=== PATIENT | male | born 1950 | race Caucasian/White ===

== ENCOUNTER → 2018-10-25 08:12 | Outpatient (CLI) | payer MEDICARE, OTHER, SELFPAY ==
[2018-10-25 09:39] LABS: Alanine Aminotransferase 34 IU/L (21-72); Albumin Globulin Ratio 1.7 (1.0-2.8); Alkaline Phosphatase 75 U/L (38-126); Aspartate Aminotransferase 30 IU/L (17-59); Blood Urea Nitrogen 20 mg/dL (9-20); Calcium 8.9 mg/dL (8.4-10.2); Carbon Dioxide 30 mmol/L (22-32); Chloride 103 mmol/L (98-107); Cholesterol 192 mg/dL (140-199); Estimated Glomerular Filt Rate > 60.0 mL/min (>60); Globulin 2.3 g/dL (1.7-4.1); Glucose 102 mg/dL (80-110); HDL Cholesterol 37 mg/dL (40-60); LDL Cholesterol Calculated 120 mg/dL (<100); Potassium 4.1 mmol/L (3.4-5.1); Sodium 140 mmol/L (137-145); Total Protein 6.3 g/dL (6.3-8.2); Triglycerides 173 mg/dL (35-150)
[2018-10-25 10:05] LABS: Thyroid Stimulating Hormone 1.88 uIU/mL (0.47-4.68)
[2018-10-25 10:11] LABS: HEMOLYSIS < 15 (0-50); Prostate Specific Antigen Scrn 2.42 ng/mL (0.1-4.0)
== END ==
PROVIDERS: PCP Internal Medicine; Visit Provider Internal Medicine
DX: E78.5 Hyperlipidemia, unspecified (principal); E04.9 Nontoxic goiter, unspecified; Z12.5 Encounter for screening for malignant neoplasm of prostate; Z13.1 Encounter for screening for diabetes mellitus; Z13.6 Encounter for screening for cardiovascular disorders
CPT/HCPCS: 36415; 80053; 80061; 84439; 84443; G0103

== ENCOUNTER → 2020-06-06 08:01 | Outpatient (CLI) | payer MEDICARE, OTHER, SELFPAY ==
[2020-06-06 09:33] LABS: Prostate Specific Antigen 3.03 ng/mL (0.10-4.00)
== END ==
PROVIDERS: PCP Internal Medicine; Referring Provider Specialist; Visit Provider Specialist
DX: N13.8 Other obstructive and reflux uropathy (principal); N40.1 Benign prostatic hyperplasia with lower urinary tract symptoms
CPT/HCPCS: 36415; 84153

== ENCOUNTER → 2021-03-05 08:03 | Outpatient (CLI) | payer MEDICARE, OTHER, SELFPAY ==
[2021-03-05 10:05] LABS: Alanine Aminotransferase 37 IU/L (<50); Albumin 4.1 g/dL (3.5-5.0); Albumin Globulin Ratio 1.5 (1.0-2.8); Alkaline Phosphatase 83 U/L (38-126); Aspartate Aminotransferase 37 IU/L (17-59); BUN Creatinine Ratio 19.5 (6-22); Blood Urea Nitrogen 22 mg/dL (9-20); Calcium 9.3 mg/dL (8.4-10.2); Carbon Dioxide 29 mmol/L (22-32); Chloride 106 mmol/L (98-107); Cholesterol 237 mg/dL (140-199); Estimated Glomerular Filt Rate > 60.0 mL/min (>60); Globulin 2.7 g/dL (1.7-4.1); Glucose 107 mg/dL (80-110); HDL Cholesterol 42 mg/dL (40-60); HEMOLYSIS < 15 (0-50); LDL Cholesterol Calculated 149 mg/dL (<100); Potassium 4.1 mmol/L (3.4-5.1); Sodium 141 mmol/L (137-145); Total Protein 6.8 g/dL (6.3-8.2); Triglycerides 231 mg/dL (35-150)
== END ==
PROVIDERS: PCP Internal Medicine; Referring Provider Internal Medicine; Visit Provider Internal Medicine
DX: E78.5 Hyperlipidemia, unspecified (principal); N40.1 Benign prostatic hyperplasia with lower urinary tract symptoms
CPT/HCPCS: 36415; 80053; 80061

== ENCOUNTER → 2022-10-23 08:33 | Outpatient (CLI) | payer MEDICARE, SELFPAY ==
[2022-10-23 10:57] LABS: Prostate Specific Antigen 4.04 ng/mL (0.10-4.00)
== END ==
PROVIDERS: PCP Internal Medicine; Referring Provider Specialist; Visit Provider Specialist
DX: N40.1 Benign prostatic hyperplasia with lower urinary tract symptoms (principal)
CPT/HCPCS: 36415; 84153

== ENCOUNTER → 2022-11-04 10:11 | Outpatient (CLI) | payer MEDICARE, OTHER, SELFPAY ==
[2022-11-06 09:05] LABS: PSA Free % 8.6 % (.); PSA, Total 2.9 ng/mL (0.0-4.0)
== END ==
PROVIDERS: PCP Internal Medicine; Referring Provider Specialist; Visit Provider Specialist
DX: R97.20 Elevated prostate specific antigen [PSA] (principal)
CPT/HCPCS: 36415; 84153; 84154

== ENCOUNTER → 2023-03-27 14:46 | Outpatient (CLI) | payer MEDICARE, OTHER, SELFPAY ==
[2023-03-29 09:06] LABS: PSA Free % 7.4 % (.); PSA, Total 3.9 ng/mL (0.0-4.0)
== END ==
PROVIDERS: PCP Internal Medicine; Referring Provider Specialist; Visit Provider Specialist
DX: R97.20 Elevated prostate specific antigen [PSA] (principal)
CPT/HCPCS: 36415; 84153; 84154

== ENCOUNTER → 2023-04-27 11:02 | Outpatient (CLI) | payer MEDICARE, OTHER, SELFPAY ==
--- NOTE | 2023-04-27 11:05 | DI.MRI.S_ITS ---
PROCEDURE: MR PELVIC PROSTATE PROTOCOL INDICATIONS: elevated PSA level TECHNIQUE: Coronal HASTE, axial T1 FSE with fat saturation, 3-plane nonbreath-hold T2 FSE. After the administration of contrast, dynamic axial, delayed axial and coronal VIBE or 2-D FLASH with fat saturation through the pelvis. Optional diffusion weighted imaging and ADC may be performed. COMPARISON: None. FINDINGS: Image quality: Diffusion weighted and dynamic contrast enhanced images are diagnostic. Prostate: Gland size is 4.1 x 2.9 x 4.2 cm; ellipsoid gland volume is 26 mL. Mild linear and wedge-shaped ADC hypointensities present within the prostate peripheral zone with indistinct T2 correlates (PI-RADS 2 findings). In the transition zone, no large lesion strongly stands out against background parenchymal changes of BPH on T2 weighted images (PI-RADS 2 findings). Genitourinary system: Bladder wall thickness is normal. Distal ureters are non distended. Bowel and peritoneum: No pathologic free pelvic fluid. Inferior colon and small bowel loops are normal in caliber. Nodes and vessels: No pelvic or inguinal adenopathy by size criteria. Iliac vessels are normal in caliber. Bones: No definite lesions to suggest metastases. IMPRESSION: 1. No large or highly suspicious focal prostate lesion to direct biopsy. Prostate volume estimated at 26 cc. 2. No suspicious lymph nodes identified in the imaged pelvis. Dictated by: Renato Dee M.D. on 04/27/2023 at 16:20 Approved by: Renato Dee M.D. on 04/27/2023 at 16:41
== END ==
PROVIDERS: PCP Internal Medicine; Referring Provider Specialist; Visit Provider Specialist
DX: N40.1 Benign prostatic hyperplasia with lower urinary tract symptoms (principal); R97.20 Elevated prostate specific antigen [PSA]; Z87.898 Personal history of other specified conditions
CPT/HCPCS: 72197; A9579

== ENCOUNTER 2023-06-15 07:52 | Day surgery (SDC) | payer MEDICARE, OTHER, SELFPAY ==
[2023-06-11 07:36] VITALS: BMI 25.0
[2023-06-15] VITALS (15 sets, daily range): BP systolic 125–156; BP diastolic 61–80; PULSE 59–79; RESP 10–18; TEMP 35.9–36.7; O2SAT 95–99; BMI 25.0
--- NOTE | 2023-06-15 | PATH_ITS ---
[facility] Accession Number: [id number] No. of containers..01 Tissue . 01 Material submitted: . prostate - PROSTATE CHIPS . 01 Diagnosis: Prostate Chips: Benign prostatic tissue with glandular and stromal hyperplasia; negative for malignancy. MRV 06/24/2023 1518 Local . 01 Electronically signed: . Angeline Soto MD, Pathologist NPI- [id number] . 01 Gross description: . PROSTATE CHIPS: Received in formalin is multiple fragment(s) of rodas, soft tissue measuring 9.0 x 6.0 x 0.5 cm in aggregate submitted entirely in 7 cassette(s) /AAY 06/16/2023 0600 Local . 01 Pathologist provided ICD-10: N32.0 . 01 CPT . 208468 Specimen Comment: A courtesy copy of this report has been sent to [phone] Performed at: 01 [facility] [address] [place] [address], [place], [place] [id number] MD Dusty Ya MD Phone: [phone]
[2023-06-15] MEDS: LACTATED RINGERS 1,000 ML 21 ML IV (08:10)
[2023-06-15] MEDS: ACETAMINOPHEN IV 1,000 MG/100 ML VIAL 400 MG IV (08:10)
--- NOTE | 2023-06-15 08:30 | PM.PREOP ---
Pre-operative Note Interval Note History & Physical reviewed/Exam performed by Physician: Yes Changes to H&P: No
[2023-06-15] MEDS: CEFAZOLIN 2 GM/100 ML PREMIX 100 ML IV (09:15)
[2023-06-15] MEDS: TRANEXAMIC ACID 1,000 MG in SODIUM CHLORIDE 0.9% 100 ML 200 MG IV (09:16)
--- NOTE | 2023-06-15 09:34 | SUR.OPER ---
Lithotomy on padded OR bed, head on pillow, arms secured on padded arm boards at <90 degrees abduction. Legs secured in padded yellow fins stirrups.
--- NOTE | 2023-06-15 10:18 | P.OP_ITS ---
Operative Date/Time/Diagnoses Date of procedure: 06/15/23 Time of procedure: 10:18 Pre-op diagnosis: 1. Bladder outlet obstruction. 2. Failure medical therapy. Post-op diagnosis: same Procedure & Clinicians Procedure: 1. Cystoscopy/Transurethral resection of prostate. Same procedure as scheduled: Yes Indications: 1. Bladder outlet obstruction. 2. Failure medical therapy. Surgeon: Maxi Ge Click Yes if Unassisted: Yes Anesthesia Type: General Operative Notes Findings: 1. Urethra-normal caliber without annular stricture or lesion. 2. External sphincter-coapted with normal overlying urothelium and vascularity. 3. Prostate-4 cm length with very high median bar and globus intravesical median lobe. Moderate lateral lobe hyperplasia. 4. Bladder-1 to 2+ trabeculation. Normal ureteral orifices bilaterally with clear efflux. No stone, tumor, or diverticulum seen. Closure Type: not applicable Specimen(s): other (Prostate chips) Applied: catheter ([address] hematuria catheter) Estimated Blood Loss (mL): 5 Blood products transfused: none Procedure in detail: The patient was positioned supine and was administered general anesthesia. He was then repositioned in semi-lithotomy and the lower abdomen, genitalia, and groin were then prepped and draped in the sterile fashion. The meatus and some navicularis required gentle dilation with the Winsome sound in order to insinuate the resectoscope. Resectoscope was then advanced proximally under direct visualization with the findings as described above. The working element was then fitted with the TUR loop. Incisions were made at the 1 and 11 p ositions from the bladder neck to the level of the verumontanum down near the capsule. The intervening anterior tissue was then resected from bladder neck to level of verumontanum in the same manner. Next the left, followed by the right lateral lobe tissue was resected anteriorly toward posterior. Now the globus median lobe and elevated median bar were resected and general contour from the bladder neck to just proximal of the verumontanum. Bilateral apical tissue was intentionally left adjacent to the verumontanum. All bleeding was carefully cauterized for hemostasis. Next, the [employer] evacuator was utilized together all tissue chips. The TUR chips were then submitted to pathology for routine gross and microscopic examination. The bladder was then left partially filled and the resectoscope was removed. A [address] hematuria catheter was then passed into the bladder with the assistance of a catheter guide. The balloon was then inflated to 30 cc and gently snugged to the level of the bladder neck. The catheter was then irrigated with a catheter tip syringe to assure patency and hemostasis. A three-way catheter was then attached to normal saline inflow and gravity outflow. The catheter arrangement was secured to the inner thigh using a StatLock without traction. The patient was then repositioned in supine, was awakened, transferred to [facility], and then transferred to recovery in stable condition. Complications: none Post-operative Condition: stable Disposition: PACU Plan for aftercare: Admit outpatient with the bed.
[2023-06-15] MEDS: OXYCODONE IR 5 MG TABLET PO ×3 (10:44→21:42)
[2023-06-15] MEDS: ONDANSETRON 4 MG/2 ML INJ IV (11:00)
[2023-06-15] MEDS: HYDROMORPHONE 0.5 MG INJ IV ×2 (11:27→12:43)
[2023-06-15] MEDS: LACTATED RINGERS 1,000 ML 125 ML IV ×2 (11:30→21:30)
[2023-06-15] MEDS: ACETAMINOPHEN 325 MG TABLET 650 MG PO (16:59)
[2023-06-16] MEDS: HYDROMORPHONE 0.5 MG INJ IV (01:23)
[2023-06-16 03:54] VITALS: BP 136/74; PULSE 73; RESP 16; TEMP 35.8; O2SAT 100
[2023-06-16] MEDS: OXYCODONE IR 5 MG TABLET PO ×2 (05:22→14:04)
[2023-06-16] MEDS: TAMSULOSIN 0.4 MG CAPSULE PO (08:12)
[2023-06-16 09:00] VITALS: BP 137/69; PULSE 63; RESP 16; TEMP 36.5; O2SAT 98
--- NOTE | 2023-06-16 12:23 | CM.DANOTE ---
Brief DCP Assessment Note Patient is a 72[address] Ge following a Cystoscopy/Transurethral resection of prostate on 06/[address] 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 No H&P available. only available report at time is operative note. From RN, pt lives with in [place]. Indep at baseline. No CM needs likely. From RN, voided and Joo plans to return around 12pm to likely dc patient home. 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 Per chart review/RN input, likely no CM needs. Plan: home with spouse support when medically stable. Likely today. CM team will continue to follow as needed. WENDY Chambers Discharge Planning/Care Management CM Discharge Assessment Start: 06/16/23 12:21 Freq: Status: Active Protocol: Document 06/16/23 12:21 (Rec: 06/16/23 12:23 [id number]) Discharge Planning Assessment Assigned Nursing Unit Clerk WENDY Rey DPOA/Assigned Designee Name Kathrin Rodriguez (spouse) Contact Information [phone] Advance Directives? No History Provided By Medical Record Prior Living Arrangements House Household Members spouse Independent with ADL's Yes Is patient alert and oriented? Yes Barriers to Discharge No Discharge Plan Home Transportation Arrangement likely family in [place] Referrals Initiated None needed Whiteboard Updated in Patient Room with No name and ext. # of Nursing Unit Clerk Review Status In Process Next Review Type Continued Stay Review Pre-Anesthesia Assessment Start: 06/11/23 07:36 Freq: Status: Active Protocol: Document 06/11/23 07:36 CAB (Rec: 06/11/23 07:40 CAB [id number]) Pre-Anesthesia Assessment Patient Information Reviewed Via Chart Review Primary Care Provider Orville Almazan Seen Specialist in Last 12 Months Yes Specialist Seen Urologist Primary Language [employer] Operations Manager Required No Height 182.88 cm Weight 83.915 kg Body Mass Index (BMI) 25.0 Barriers to Learning None Anesthesia Review Requested No Marketing Professor No alcohol intake current alcohol intake frequency a few times a week Smoking Status Former smoker History of Falling (Recent or History of No ) Patient is completely paralyzed or No completely immobile Mental Status Oriented to own ability Is patient on oxygen? No Hx Sleep Apnea No Currently Taking a Beta Albert No Anti-Coagulant Therapy No Cardiac Testing No Hx Pacemaker/ICD No Pacemaker Rep Required? No Cardiac Clearance Received Not Applicable Gastrointestinal Symptoms Reflux Urinary Catheter Present No Hx Urinary Self Catheterization No Diabetes No Marital Status Lives With spouse Patient Discharge Plan Description Return Home
[2023-06-16 12:51] VITALS: BP 130/60; PULSE 77; RESP 17; TEMP 36.5; O2SAT 99
--- NOTE | 2023-06-16 13:16 | P.DS_ITS ---
History of Present Illness History of Present Illness Date Patient Seen: 06/16/23 Time Patient Seen: 12:30 Chief complaint: OPB Narrative: Patient is a 72-year-old male admitted 06/15/2023 for schedule Transurethral resection of the prostate. He carefully evaluated other forms of intervention for symptomatic bladder outlet obstruction and dissatisfaction/failure of medical therapy. After careful consideration he elected to proceed with Transurethral resection of prostate. Discharge Providers Provider Date of admission: 06/15/2023. Discharge Date: 06/16/23 Primary care physician: Orville Almazan MD Discharge provider: Maxi Ge MD Summary Hospital Course Discharge Diagnosis: 1. Bladder outlet obstruction. 2. Failure medical therapy. Hospital Course: The patient was admitted on 06/15/2023 and underwent uncomplicated Transurethral resection of the prostate under general anesthetic. His postop course was largely unremarkable other than noted penile glans pain in the immediate postoperative. Limited narcotic analgesic and ice pack brought prompt remedy of his immediate postoperative complaints. Otherwise, he tolerated general diet, was able to transfer independently, and able to ambulate without assistance by the 1st postoperative morning. In the later morning of 06/16/2023, the patient was stable for discharge. Routine post TURP activity and driving restriction, and catheter care and use instructions were provided. Exam Vital Signs (past 8 hours): - 06/16/23 09:00 06/16/23 12:51 Temperature 97.7 F 97.7 F Pulse Rate 63 77 Respiratory Rate 16 17 Blood Pressure 137/69 130/60 Pulse Oximetry 98 99 Oxygen Flow Rate 0 0 Oxygen Delivery Method Room Air Oxygen Flow Rate 0 Narrative Exam Narrative: Resting comfortably in bed upright and eating lunch in no distress. Abdomen is soft scaphoid flat. Shultz catheter indwelling with very light sarita outflow in no clots. [facility] Medical History History of elevated PSA Family history of prostate cancer Elevated PSA Erectile dysfunction Family history of prostate cancer BPH loc w urin obs/LUTS (05/04/12) GERD without esophagitis (05/04/12) Hyperlipidemia, unspecified (05/04/12) Surgical History History of ankle surgery History of surgery on arm S/P tonsillectomy and adenoidectomy Social History household members: spouse Smoking Status: Former smoker alcohol intake: current Discharge Assessment & Plan Assessment and Plan Assessment: 1. Stable postop day 1 status post Transurethral resection of prostate. 2. Pathology pending. 3. Indwelling Shultz. Plan of Treatment: 1. Discharge home today. 2. Follow-up with patient and discuss surgical pathology when final. 3. Schedule outpatient follow-up in Urology Clinic 06/17/2023 for supervised voiding trial. Discharge Plan Discharge Plan Patient Disposition: Home Provider Discharge Comment: Contact Urology Clinic today to schedule supervise voiding trial for Thursday06/17/2023. Discharge orders & Medications Discharge Orders: Discharge (Order); Ordered 06/16/23 Ordered By: Maxi Ge Prescriptions: New oxycodone 5 mg Tablet 5 mg PO Q4H PRN (Reason: Pain, Moderate (4-6)) Qty: 6 0RF alprazolam 0.5 mg tablet 0.5 mg PO DAILY Qty: 1 0RF Rx Instructions: Take tablet proximally 1 hour before scheduled procedure as directed. cephalexin 250 mg capsule 250 mg PO TID Qty: 10 0RF Continued tamsulosin 0.4 mg capsule 0.4 mg PO DAILY Qty: 90 3RF Follow up/Referrals: Maxi Ge MD [Physician] - 06/17/23 (Dr eG's office will call you with appointment time for 06/17 for supervised voiding trial ) Orville Almazan MD [Primary Care Provider] - Diet/Activity/Treatments Diet: Diet as Tolerated Activity: Refrain from lifting objects greater than 15 lb x 4 weeks. Catheter: 2-way Shultz Skin/Wound/Dressing Care Report to your healthcare provider any signs of infection, such as:: chills, fever, night sweats, increased pain and unusual drainage Visit Report/Discharge Packet Instructions: How to Care for Your Shultz Catheter -- Male, DI for Transurethral Resection of the Prostate, DI for Prescription Opioid Use, Oxycodone, Cephalexin, Alprazolam (By mouth) Stand Alone Forms: Patient Portal/API, Stroke Signs & Symptoms, Surgery Discharge Discharge Data Primary Care Provider: Orville Almazan Attending Provider: Maxi Ge
--- NOTE | 2023-06-16 14:17 | PC.NURSE ---
discharg note: patient teaching done with patient and at bedside. Bother parties state understanding about cath care, cleaning, S\S of infection and\or cath clotting. Advised patient to document amount emptied and time. Patient declined to use a leg bag and wanted to d/c with large back. Patient states he has a f/u with provider on 06/17 for removal. Patients urine has hematuria but not abn. for surg. that was had or what was present during hosp. stay. Patient is leaving with belongings in hand, in stable condition, VSS, escorted down to private vehicle via .
[2023-06-26 06:35] LABS: Appearance Urine UA SL CLOUDY; Bilirubin Urine UA NEGATIVE (NEGATIVE); Color Urine UA YELLOW; Glucose Urine UA NEGATIVE (Negative); Ketones Urine UA NEGATIVE (NEGATIVE); Leukocyte Esterase Urine UA 1+ (NEGATIVE); Nitrite Urine UA NEGATIVE (Negative); Occult Blood Urine UA 3+ (Negative); Protein Urine UA TRACE (Negative); Specific Gravity Urine UA <=1.005 (1.000-1.035); Urobilinogen Urine UA 0.2 E.U./dL (0.2)
[2023-06-26 06:46] LABS: Bacteria Urine None Seen; Culture Indicated Urine Specimen Cultured; RBC Urine 10-30/HPF (0-5/HPF); Squamous Epithelial Cell Urine 1-5 /HPF (0-5/HPF); WBC Urine 5-10/HPF (0-5/HPF)
== END 2023-06-16 14:39 | disposition home or self-care (01) ==
LOC: OR 07:54 → AC 07:55
PROVIDERS: PCP Internal Medicine; Referring Provider Specialist; Visit Provider Specialist
PROC: 0VT08ZZ Resection of Prostate, Via Natural or Artificial Opening Endoscopic (ICD-10-PCS; CPT 52601; principal; 2023-06-15 09:15)
DX: N32.0 Bladder-neck obstruction (principal); N40.0 Benign prostatic hyperplasia without lower urinary tract symptoms; Z80.42 Family history of malignant neoplasm of prostate
CPT/HCPCS: 52601; 81001; 87086; J0131; J0690; J1100; J1170; J2250; J2405; J2704; J3010

== ENCOUNTER → 2023-07-22 12:15 | Outpatient (CLI) | payer MEDICARE, OTHER, SELFPAY ==
[2023-06-16 16:50] VITALS: BMI 25.0
== END ==
PROVIDERS: PCP Internal Medicine; Visit Provider Specialist
DX: T83.511A Infection and inflammatory reaction due to indwelling urethral catheter, initial encounter (principal); R31.0 Gross hematuria; N39.0 Urinary tract infection, site not specified; N40.1 Benign prostatic hyperplasia with lower urinary tract symptoms; Z80.42 Family history of malignant neoplasm of prostate
CPT/HCPCS: 51798; 81002; 87077; 87086; 87186; 99213

== ENCOUNTER → 2023-08-05 13:56 | Outpatient (CLI) | payer MEDICARE, OTHER, SELFPAY ==
[2023-06-16 16:50] VITALS: BMI 25.0
== END ==
PROVIDERS: PCP Internal Medicine; Visit Provider Specialist
DX: N39.0 Urinary tract infection, site not specified (principal); R39.9 Unspecified symptoms and signs involving the genitourinary system; Z80.42 Family history of malignant neoplasm of prostate
CPT/HCPCS: 51798; 81002; 87086; 99214

== ENCOUNTER → 2023-08-12 13:50 | Outpatient (CLI) | payer MEDICARE, OTHER, SELFPAY ==
[2023-06-16 16:50] VITALS: BMI 25.0
== END ==
PROVIDERS: PCP Internal Medicine; Visit Provider Specialist
DX: R39.9 Unspecified symptoms and signs involving the genitourinary system (principal); Z80.42 Family history of malignant neoplasm of prostate
CPT/HCPCS: 51798; 81002; 87086; 99214

== ENCOUNTER → 2023-09-23 08:54 | Outpatient (CLI) | payer MEDICARE, OTHER, SELFPAY ==
[2023-06-16 16:50] VITALS: BMI 25.0
[2023-09-23 10:46] LABS: Prostate Specific Antigen Scrn 5.09 ng/mL (0.1-4.0)
== END ==
PROVIDERS: PCP Internal Medicine; Referring Provider Specialist; Visit Provider Specialist
DX: Z12.5 Encounter for screening for malignant neoplasm of prostate (principal)
CPT/HCPCS: 36415; G0103

== ENCOUNTER → 2024-01-06 10:31 | Outpatient (CLI) | payer MEDICARE, OTHER, SELFPAY ==
[2023-06-16 16:50] VITALS: BMI 25.0
[2024-01-08 11:00] LABS: PSA Free % 7.5 % (.); PSA, Total 4.8 ng/mL (0.0-4.0)
== END ==
LOC: LAB 10:33
PROVIDERS: PCP Internal Medicine; Referring Provider Specialist; Visit Provider Specialist
DX: R97.20 Elevated prostate specific antigen [PSA] (principal)
CPT/HCPCS: 36415; 84153; 84154

== ENCOUNTER → 2024-01-19 07:54 | Outpatient (CLI) | payer MEDICARE, OTHER, SELFPAY ==
[2023-06-16 16:50] VITALS: BMI 25.0
[2024-01-19 08:35] LABS: Estimated Glomerular Filt Rate > 60 mL/min (>60)
--- NOTE | 2024-01-19 09:30 | DI.CT.S_ITS ---
PROCEDURE: CT PELVIS W CON INDICATIONS: Family history of prostate cancer/Hx of TURP TECHNIQUE: After the administration of intravenous contrast, 5 mm thick sections acquired from the iliac crests to the symphysis. 5 mm coronal and sagittal reformats were acquired. For radiation dose reduction, the following was used: automated exposure control, adjustment of mA and/or kV according to patient size. COMPARISON: [facility], MR, MR PELVIC PROSTATE PROTOCOL, 04/27/2023, 11:23. FINDINGS: Image quality: Diagnostic. PELVIS: Peritoneum and Bowel: Bowel loops demonstrate normal wall thickness and caliber. No free fluid or air. Pelvic Organs: The prostate gland is less well seen on CT and measures roughly 2.9 x 3.6 cm on axial imaging. There is a central defect of TURP. Prostate contour is within normal limits. No visible pelvic mass. Bladder: Normal wall thickness, accounting for underdistension. No perivesicular fat stranding. Pelvic Nodes: No enlarged lymph nodes. Miscellaneous: Small bilateral indirect fat containing inguinal hernias containing knuckle of small bowel in the right and colon on the left. Bones: No suspicious bone lesions. Degenerative disc and endplate change at L5-S1. Bone island in the L4 vertebral body. IMPRESSION: Nonenlarged prostate gland with central defect of TURP. No pelvic adenopathy. Dictated by: Angélica Salazar M.D. on 01/19/2024 at 13:06 Approved by: Angélica Salazar M.D. on 01/19/2024 at 13:11
== END ==
PROVIDERS: Radiology Diagnostic Radiology; PCP Internal Medicine; Referring Provider Specialist; Visit Provider Specialist
DX: Z09 Encounter for follow-up examination after completed treatment for conditions other than malignant neoplasm (principal); Z98.890 Other specified postprocedural states; Z90.79 Acquired absence of other genital organ(s); Z80.42 Family history of malignant neoplasm of prostate; K40.20 Bilateral inguinal hernia, without obstruction or gangrene, not specified as recurrent
CPT/HCPCS: 36415; 72193; 82565; Q9967

== ENCOUNTER → 2024-06-23 14:47 | Outpatient (CLI) | payer MEDICARE, OTHER, SELFPAY ==
[2024-02-02 09:31] VITALS: BMI 25.0
== END ==
LOC: LAB 14:48
PROVIDERS: Family Provider Internal Medicine; PCP Internal Medicine; Referring Provider Urology; Visit Provider Urology
DX: R97.20 Elevated prostate specific antigen [PSA] (principal)
CPT/HCPCS: 84153

== ENCOUNTER 2024-07-05 09:45 | Outpatient (RCR) | payer MEDICARE, OTHER, SELFPAY ==
[2024-02-02 09:31] VITALS: BMI 25.0
--- NOTE | 2024-06-09 16:00 | PT.OPPOC ---
Physical, Occupational & Speech Therapy At [facility] Current Diagnoses Urge incontinence (06/14/24) Pelvic muscle wasting (06/14/24) Frequency of micturition (06/14/24) Nocturia (06/14/24) Visit Care Team Role Provider Type Orville Almazan MD Family Provider Physician Primary Care Provider Specialty: Internal Medicine Address: [address] [place] [address], [address], [place], [address] Email: [email or web address] DO Attending Provider Physician Referring Provider Specialty: Urology Address: [address] [place] [address], [id number] Fax: Email: Plan Of Care PT-OP-B Current Condition Start: 06/09/24 09:11 Freq: Status: Active Protocol: Document 06/09/24 09:45 [facility] (Rec: 06/09/24 10:13 [facility] [id number]) Current Condition History of Current Condition Onset Date years Current Complaints urinary frequency and nocturia History of Current Condition history of TURP procedure last June due to enlarged prostate. He doesn't feel that the surgery helped. He notes he feels like he can completely void but he can go every 15 minutes all day long. IF he is up and active and moving the urgency is worse and he will experience leakage . It is rare he can go more than a hour. He had tried flomax x 20 years and now isn' t having to take it. He wakes up a couple of times per night. bladder habits 1 cup of coffee in am for breakfast and a soda with lunch and a glass 16 oz glass with dinner leakage is 2-3 times a day and it varies. Treatment Goals Patient/Caregiver Goals Cuate's goals include decreasing urgency and frequency and urinary leakage PT-OP-T Assessment and Plan Start: 06/09/24 09:11 Freq: Status: Active Protocol: Document 06/09/24 09:45 [facility] (Rec: 06/14/24 12:11 [facility] [id number]) Physical Therapy Assessment Rehab Potential Rehabilitation Potential Excellent Evaluation Complexity Number of Personal Factors/Comorbidities 0 Number of Body Systems Impaired 1-2 Clinical Presentation at Evaluation Stable Impairments Impairments Activity Tolerance,Strength Other Impairments urinary urgency and frequency with leakage and nocturia Goals 3 Impairment Decreased pelvic floor endurance Short Term Goal (STG) Cuate is able to increase his endurance to 10 second hold time of the pelvic floor in supine STG Duration 4 weeks Snf Goal (LTG) Cuate is able to increase pelvic floor endurance to 5 sec hold time in standing LTG Duration 8 weeks 2 Impairment urinary urge incontinence 2-3 times per day Short Term Goal (STG) Cuate is able to increase water and decrease bladder irritants to decrease his bladder irritation and urgency STG Duration 4 weeks Snf Goal (LTG) Cuate reports a overall reduction in urinary urge incontinence LTG Duration 8 weeks 1 Impairment urinary urgency and frequency with voiding intervals every 15 minutes during the day and approx 3 times per night Short Term Goal (STG) Cuate is educated on urge deference technique and bladder retraining as well as given education on bladder irritants STG Duration 4 weeks Snf Goal (LTG) Cuate reports a decrease in urinary frequency and urgency and is able to increase his voids to at least 1 hour or better in between voids LTG Duration 8 weeks Assessment Summary Assessment Cuate is a 73 year old male referred to PT with chief complaints of urinary urgency and frequency with leakage and nocturia. Cuate has a history of a TURP procedure in June 2023 due to enlarged prostate. He reports he did have urgency prior to the procedure. He feels that he can completely void however he has the urge to void often every 15 min during the day. It is rare that he can go longer than 1 hour in between voids. When reviewing his fluid intake Cuate has very little water during the day. He reports having coffee in the am and a soda after lunch that he doesn 't always finish. He does report drinking 16 oz of water with dinner. I gave him a bladder diary today to track his voids. He was educated on bladder irritants and I encouraged him to drink water first thing in the am prior to his coffee. Cuate was educated on the urge deference technique and bladder retraining. PT evaluation of pelvic floor contraction and endurance was performed. Cuate was given cues to improve his anterior pelvic floor recruitment and would benefit from pelvic floor endurance training. He is a good candidate for PT Physical Therapy Plan Frequency and Duration Frequency of Treatment 1x/Week Duration of treatment (weeks) 8 Plan of Care Start Date 06/09/24 Plan of Care End Date 08/04/24 Therapeutic Interventions Therapeutic Interventions Home Exercise Program, Neuromuscular Re-education, Patient/Caregiver Education, Self-Care/Home Management, Therapeutic Exercises Next Visit Focus/Plan Next Note Type Treatment Note Next Visit Plan review bladder diary, review urge deference technique, review pelvic floor long holds and add in sit-stand Plan of Care Dates Plan of Care Start Date 06/09/24 Plan of Care End Date 08/04/24 Electronically Signed by: Beckie Mendoza, PT 06/14/24 0114 If you are in agreement with this Plan of Care, please return a signed and dated copy. I have reviewed this Plan of Care and certify that the skilled therapy services above are required to meet the patient?s needs. Physician Signature Date Printed Name and Credentials Clinical Instructor Signature Printed Name and Credentials
--- NOTE | 2024-06-09 16:00 | PT.OIE ---
Current Diagnoses Urge incontinence (06/14/24) Pelvic muscle wasting (06/14/24) Frequency of micturition (06/14/24) Nocturia (06/14/24) Past Medical History (Last Reviewed 02/16/24 @ 10:15 by Vadim Juarez DO) BPH loc w urin obs/LUTS (05/04/12) Elevated PSA Erectile dysfunction Family history of prostate cancer Family history of prostate cancer GERD without esophagitis (05/04/12) Gross hematuria History of elevated PSA Hyperlipidemia, unspecified (05/04/12) Lower urinary tract symptoms (LUTS) UTI (urinary tract infection) Past Surgical History (Last Reviewed 02/16/24 @ 10:15 by Vadim Juarez DO) History of ankle surgery History of surgery on arm History of transurethral resection of prostate S/P tonsillectomy and adenoidectomy Visit Care Team Role Provider Type Orville Almazan MD Family Provider Physician Primary Care Provider Specialty: Internal Medicine Address: [address] [place] [address], [address], [address] Email: [email or web address] Vadim Juarez DO Attending Provider Physician Referring Provider Specialty: Urology Address: [address] [place] [address], [id number] Fax: Email: Physical Therapy Initial Evaluation PT-OP-A Visit Information Start: 06/09/24 09:11 Freq: Status: Active Protocol: Document 06/09/24 09:45 [facility] (Rec: 06/09/24 10:13 ON LICENSE OF [facility] [id number]) Out-Patient Physical Therapy Visit Information Visit Information Visit Type Initial Evaluation Visit Start Time 09:45 Visit Stop Time 10:30 Visit Number 1 Evaluation Information Evaluation Date 06/09/24 PT-OP-B Current Condition Start: 06/09/24 09:11 Freq: Status: Active Protocol: Document 06/09/24 09:45 [facility] (Rec: 06/09/24 10:13 [facility] [id number]) Current Condition History of Current Condition Onset Date years Current Complaints urinary frequency and nocturia History of Current Condition history of TURP procedure last june due to enlarged prostate. He doesn't feel that the surgery helped. He notes he feels like he can completely void but he can go every 15 minutes all day long. IF he is up and active and moving the urgency is worse and he will experience leakage . It is rare he can go more than a hour. He had tried flomax x 20 years and now isn' t having to take it. He wakes up a couple of times per night. bladder habits 1 cup of coffee in am for breakfast and a soda with lunch and a glass 16 oz glass with dinner leakage is 2-3 times a day and it varies. Treatment Goals Patient/Caregiver Goals Cuate's goals include decreasing urgency and frequency and urinary leakage PT-OP-I Pelvic Floor Start: 06/09/24 09:11 Freq: Status: Active Protocol: Document 06/09/24 10:29 ON LICENSE OF [facility] (Rec: 06/14/24 13:14 ON LICENSE OF [facility] [id number]) Pelvic Floor Assessment Urine Pelvic Floor Surgery Yes: TURP procedure Urinary Symptoms Urge Sensation Other Urinary Symptoms nocturia, urinary leakage Leakage Size Medium Leakage Cause Urge Leaks Per Day 2-3 Voiding Frequency every 15 minutes Nocturia 3 Pelvic Clock Pelvic Clock Other external palpation of the pelvic floor reveals decreased endurance of the pelvic floor , pt given cues to anterior pelvic floor recruitment Contraction Ability Voluntary Contraction Moderate Voluntary Relaxation Moderate Muscle Endurance (Seconds) 8 Comments Pelvic Floor Comments decreased anterior pelvic floor recruitment and endurance holds PT-OP-Q Treatments Start: 06/09/24 09:11 Freq: Status: Active Protocol: Document 06/09/24 10:29 ON LICENSE OF [facility] (Rec: 06/09/24 10:30 ON LICENSE OF [facility] [id number]) Therapeutic Exercises Supine Exercises pelvic floor long holds Reps/Minutes x 10 reps holding 10 seconds and relaxing x 10 seconds Self-Care/Home Management Treatment Education Patient Education Home Exercise Program Other Education Cuate was educated in urge deference technique and bladder retraining, we reviewed bladder irritants and adding in water to his daily routine. PT-OP-T Assessment and Plan Start: 06/09/24 09:11 Freq: Status: Active Protocol: Document 06/09/24 09:45 ON LICENSE OF [facility] (Rec: 06/14/24 12:11 ON LICENSE OF [facility] [id number]) Physical Therapy Assessment Rehab Potential Rehabilitation Potential Excellent Evaluation Complexity Number of Personal Factors/Comorbidities 0 Number of Body Systems Impaired 1-2 Clinical Presentation at Evaluation Stable Impairments Impairments Activity Tolerance,Strength Other Impairments urinary urgency and frequency with leakage and nocturia Goals 3 Impairment Decreased pelvic floor endurance Short Term Goal (STG) Cuate is able to increase his endurance to 10 second hold time of the pelvic floor in supine STG Duration 4 weeks Senior Care Goal (LTG) Cuate is able to increase pelvic floor endurance to 5 sec hold time in standing LTG Duration 8 weeks 2 Impairment urinary urge incontinence 2-3 times per day Short Term Goal (STG) Cuate is able to increase water and decrease bladder irritants to decrease his bladder irritation and urgency STG Duration 4 weeks Barber Apprentice Goal (LTG) Cuate reports a overall reduction in urinary urge incontinence LTG Duration 8 weeks 1 Impairment urinary urgency and frequency with voiding intervals every 15 minutes during the day and approx 3 times per night Short Term Goal (STG) Cuate is educated on urge deference technique and bladder retraining as well as given education on bladder irritants STG Duration 4 weeks Barber Apprentice Goal (LTG) Cuate reports a decrease in urinary frequency and urgency and is able to increase his voids to at least 1 hour or better inbetween voids LTG Duration 8 weeks Assessment Summary Assessment Cuate is a 73 year old male referred to PT with chief complaints of urinary urgency and frequency with leakage and nocturia. Cuate has a history of a TURP procedure in June 2023 due to enlarged prostate. He reports he did have urgency prior to the procedure. He feels that he can completely void however he has the urge to void often every 15 min during the day. It is rare that he can go longer than 1 hour inbetween voids. When revewing his fluid intake Cuate has very little water during the day. He reports having coffee in the am and a soda after lunch that he doesn 't always finish. He does report drinking 16 oz of water with dinner. I gave him a bladder diary today to track his voids. He was educated on bladder irritants and I encouraged him to drink water first thing in the am prior to his coffee. Cuate was educated on the urge deference technique and bladder retraining. PT evaluation of pelvic floor contraction and endurance was performed. Cuate was given cues to improve his anterior pelvic floor recruitment and would benefit from pelvic floor endurance training. He is a good candidate for PT Physical Therapy Plan Frequency and Duration Frequency of Treatment 1x/Week Duration of treatment (weeks) 8 Plan of Care Start Date 06/09/24 Plan of Care End Date 08/04/24 Therapeutic Interventions Therapeutic Interventions Home Exercise Program, Neuromuscular Re-education, Patient/Caregiver Education, Self-Care/Home Management, Therapeutic Exercises Next Visit Focus/Plan Next Note Type Treatment Note Next Visit Plan review bladder diary, review urge deference technique, review pelvic floor long holds and add in sit-stand
--- NOTE | 2024-06-14 13:36 | PT.OTN ---
Current Diagnoses Urge incontinence (06/14/24) Pelvic muscle wasting (06/14/24) Frequency of micturition (06/14/24) Nocturia (06/14/24) Physical Therapy Treatment Note PT-OP-A Visit Information Start: 06/09/24 09:11 Freq: Status: Active Protocol: Document 06/14/24 13:26 [facility] (Rec: 06/14/24 13:36 [facility] [id number]) Out-Patient Physical Therapy Visit Information Visit Information Visit Type Treatment Note Visit Start Time 11:30 Visit Stop Time 12:00 Visit Number 2 PT-OP-B Current Condition Start: 06/09/24 09:11 Freq: Status: Active Protocol: Document 06/09/24 09:45 [facility] (Rec: 06/09/24 10:13 [facility] [id number]) Current Condition History of Current Condition Onset Date years Current Complaints urinary frequency and nocturia History of Current Condition history of TURP procedure last june due to enlarged prostate. He doesn't feel that the surgery helped. He notes he feels like he can completely void but he can go every 15 minutes all day long. IF he is up and active and moving the urgency is worse and he will experience leakage . It is rare he can go more than a hour. He had tried flomax x 20 years and now isn' t having to take it. He wakes up a couple of times per night. bladder habits 1 cup of coffee in am for breakfast and a soda with lunch and a glass 16 oz glass with dinner leakage is 2-3 times a day and it varies. Treatment Goals Patient/Caregiver Goals Cuate's goals include decreasing urgency and frequency and urinary leakage PT-OP-C Subjective Start: 06/09/24 09:11 Freq: Status: Active Protocol: Document 06/14/24 13:26 [facility] (Rec: 06/14/24 13:36 [facility] [id number]) OP-PT Subjective Patient Comments Patient Comments Cuate reports the bladder diary was helpful for him to fill out as he realized how much he was actually voiding. He added in water in the am and this also helped to calm down urgency. He also performed the urge deference technique and was able to kiersten the need to go to approx every hour. He notes he hasn' t noticed leaking this past week. He is working on the endurance holds of his pelvic floor Patient Reported Progress Improving PT-OP-I Pelvic Floor Start: 06/09/24 09:11 Freq: Status: Active Protocol: Document 06/09/24 10:29 [facility] (Rec: 06/14/24 13:14 [facility] [id number]) Pelvic Floor Assessment Urine Pelvic Floor Surgery Yes: TURP procedure Urinary Symptoms Urge Sensation Other Urinary Symptoms nocturia, urinary leakage Leakage Size Medium Leakage Cause Urge Leaks Per Day 2-3 Voiding Frequency every 15 minutes Nocturia 3 Pelvic Clock Pelvic Clock Other external palpation of the pelvic floor reveals decreased endurance of the pelvic floor , pt given cues to anterior pelvic floor recruitment Contraction Ability Voluntary Contraction Moderate Voluntary Relaxation Moderate Muscle Endurance (Seconds) 8 Comments Pelvic Floor Comments decreased anterior pelvic floor recruitment and endurance holds PT-OP-Q Treatments Start: 06/09/24 09:11 Freq: Status: Active Protocol: Document 06/14/24 13:26 [facility] (Rec: 06/14/24 13:36 [facility] [id number]) Therapeutic Exercises Supine Exercises pelvic floor long holds Supine Exercise Name HEP Reps/Minutes x 10 reps holding 10 seconds and relaxing x 10 seconds Other Exercises sit-stand with pelvic floor engagement Comments pt to do each time he stands up from a sitting position Self-Care/Home Management Treatment Education Patient Education Home Exercise Program Other Education pt was educated in sit-stand with pelvic floor contraction Activities Self-Care/Home Management Activities review of bladder diary, review of urge deference technique, review of pelvic floor long holds PT-OP-T Assessment and Plan Start: 06/09/24 09:11 Freq: Status: Active Protocol: Document 06/14/24 13:26 [facility] (Rec: 06/14/24 13:36 [facility] [id number]) Physical Therapy Assessment Assessment Summary Assessment Cuate has made good progress already with increasing water intake, looking at limiting bladder irritants, urge deference technique and pelvic floor strengthening. I added in sit-stand with pelvic floor contraction to his home program. He feels leakage has decreased and he has been able to delay his voids. No change in nocturia at this point Physical Therapy Plan Frequency and Duration Frequency of Treatment 1x/Week Duration of treatment (weeks) 8 Plan of Care Start Date 06/09/24 Plan of Care End Date 08/04/24 Therapeutic Interventions Therapeutic Interventions Home Exercise Program, Neuromuscular Re-education, Patient/Caregiver Education, Self-Care/Home Management, Therapeutic Exercises Next Visit Focus/Plan Next Note Type Treatment Note Next Visit Plan review all exercises and urge deference technique, review bladder diary and time between voids
--- NOTE | 2024-07-07 16:51 | PT.OTN ---
Current Diagnoses Urge incontinence (07/05/24) Pelvic muscle wasting (07/05/24) Frequency of micturition (07/05/24) Nocturia (07/05/24) Physical Therapy Treatment Note PT-OP-A Visit Information Start: 06/09/24 09:11 Freq: Status: Active Protocol: Document 07/05/24 09:43 [facility] (Rec: 07/05/24 10:17 [facility] [id number]) Out-Patient Physical Therapy Visit Information Visit Information Visit Type Treatment Note Visit Start Time 09:45 Visit Stop Time 10:30 Visit Number 3 PT-OP-B Current Condition Start: 06/09/24 09:11 Freq: Status: Active Protocol: Document 06/09/24 09:45 [facility] (Rec: 06/09/24 10:13 [facility] [id number]) Current Condition History of Current Condition Onset Date years Current Complaints urinary frequency and nocturia History of Current Condition history of TURP procedure last june due to enlarged prostate. He doesn't feel that the surgery helped. He notes he feels like he can completely void but he can go every 15 minutes all day long. IF he is up and active and moving the urgency is worse and he will experience leakage . It is rare he can go more than a hour. He had tried flomax x 20 years and now isn' t having to take it. He wakes up a couple of times per night. bladder habits 1 cup of coffee in am for breakfast and a soda with lunch and a glass 16 oz glass with dinner leakage is 2-3 times a day and it varies. Treatment Goals Patient/Caregiver Goals Cuate's goals include decreasing urgency and frequency and urinary leakage PT-OP-C Subjective Start: 06/09/24 09:11 Freq: Status: Active Protocol: Document 07/05/24 09:43 [facility] (Rec: 07/05/24 10:17 [facility] [id number]) OP-PT Subjective Patient Comments Patient Comments pt notes he is pleased with good results overall from Pelvic floor PT. He is waking 1-2 times at night now instead of 4-5. He can go a couple of hours between voiding now during the day time. He also feels that urgency is overall decreased and he is happy with his results Patient Reported Progress Improving PT-OP-I Pelvic Floor Start: 06/09/24 09:11 Freq: Status: Active Protocol: Document 06/09/24 10:29 [facility] (Rec: 06/14/24 13:14 [facility] [id number]) Pelvic Floor Assessment Urine Pelvic Floor Surgery Yes: TURP procedure Urinary Symptoms Urge Sensation Other Urinary Symptoms nocturia, urinary leakage Leakage Size Medium Leakage Cause Urge Leaks Per Day 2-3 Voiding Frequency every 15 minutes Nocturia 3 Pelvic Clock Pelvic Clock Other external palpation of the pelvic floor reveals decreased endurance of the pelvic floor , pt given cues to anterior pelvic floor recruitment Contraction Ability Voluntary Contraction Moderate Voluntary Relaxation Moderate Muscle Endurance (Seconds) 8 Comments Pelvic Floor Comments decreased anterior pelvic floor recruitment and endurance holds PT-OP-Q Treatments Start: 06/09/24 09:11 Freq: Status: Active Protocol: Document 07/05/24 09:43 [facility] (Rec: 07/05/24 10:17 [facility] [id number]) Therapeutic Exercises Supine Exercises modified pelvic floor stretch Reps/Minutes hold 1-2 min piriformis stretch Reps/Minutes 2 x 30 seconds single knee to chest stretch Reps/Minutes 2 x 30 sec pelvic floor long holds Supine Exercise Name pt does exercises mostly in sitting. Reps/Minutes x 10 reps holding 10 seconds and relaxing x 10 seconds PT-OP-T Assessment and Plan Start: 06/09/24 09:11 Freq: Status: Active Protocol: Document 07/05/24 09:43 [facility] (Rec: 07/05/24 10:17 [facility] [id number]) Physical Therapy Assessment Goals 3 Impairment Decreased pelvic floor endurance Short Term Goal (STG) Cuate is able to increase his endurance to 10 second hold time of the pelvic floor in supine goal met STG Duration 4 weeks Marine Equipment Design Engineer Goal (LTG) Cuate is able to increase pelvic floor endurance to 5 sec hold time in standing goal met LTG Duration 8 weeks 2 Impairment urinary urge incontinence 2-3 times per day Short Term Goal (STG) Cuate is able to increase water and decrease bladder irritants to decrease his bladder irritation and urgency goal met STG Duration 4 weeks Marine Equipment Design Engineer Goal (LTG) Cuate reports a overall reduction in urinary urge incontinence Cuate notes he has only had leakage 2 times since June 14. LTG Duration 8 weeks 1 Impairment urinary urgency and frequency with voiding intervals every 15 minutes during the day and approx 3 times per night Short Term Goal (STG) Cuate is educated on urge deference technique and bladder retraining as well as given education on bladder irritants goal met STG Duration 4 weeks Marine Equipment Design Engineer Goal (LTG) Cuate reports a decrease in urinary frequency and urgency and is able to increase his voids to at least 1 hour or better inbetween voids goal met LTG Duration 8 weeks Assessment Summary Assessment Cuate has made really good progress with PT. He is now able to void every 2 hours during the day and is voiding 1-2 time per night. He reports his urgecy has significantly decreased. He has only experienced 2 leaks since June 14. He is working hard to add in water intake and to limit his caffiene to decrease bladder irritation. at this time he is independent with his HEP and he will be disharged from PT Physical Therapy Plan Discharge Physical Therapy Discharge Reasons Goals Met
== END 2024-07-14 12:18 | disposition home or self-care (01) ==
LOC: PHYS 09:45
PROVIDERS: Family Provider Internal Medicine; PCP Internal Medicine; Referring Provider Urology; Visit Provider Urology
DX: R35.0 Frequency of micturition (principal); R35.1 Nocturia; N39.41 Urge incontinence; N81.84 Pelvic muscle wasting
CPT/HCPCS: 97110; 97161; 97535